=== PATIENT | female | born 1955 | race Caucasian/White ===

== ENCOUNTER 2018-11-16 12:56 | Outpatient (CLI) | payer BC ==
--- NOTE | 2018-11-30 12:33 | Mammography Report ---
Reason: SCREENING MAMMO Procedure Date: 11/16/2018 Accession Number: [id number] / [id number] Procedure: [facility] - Screening Mammo w/Deven CPT Code: FULL RESULT: EXAM: Screening Mammo w/Deven DATE: 11/16/2018 1:56 PM CLINICAL HISTORY: Nulliparous patient for routine screening TECHNIQUE: (B) - Bilateral CC and MLO views were obtained. COMPARISON: None PARENCHYMAL PATTERN: (D) - The breasts demonstrate heterogeneously dense fibroglandular parenchyma bilaterally. FINDINGS: There are no suspicious areas of skin thickening, calcifications, or areas of distortion. Multiple bilateral nodules are present, the dominant at 11:00 right breast 4 cm from the nipple and the dominant left breast at 12:00 position 5 cm from the nipple associated with layering calcifications. IMPRESSION: Needs ADDITIONAL EVALUATION BILATERALLY BY ULTRASOUND. RECOMMENDATION: (Bilateral breast ultrasound. If prior images can be obtained for comparison additional imaging may be unnecessary. BI-RADS CATEGORY: (0) - Incomplete Examination - need additional evaluation. STANDARD QUALIFYING STATEMENTS: 1. This examination was not reviewed with the aid of Computer-Aided Detection (CAD). 2. A negative or benign imaging report should not preclude biopsy if clinically suspicious findings are present. 3. Dense breasts may obscure an underlying neoplasm. 4. This examination was reviewed with the aid of 3D breast imaging (tomosynthesis).
== END 2018-11-16 12:57 | disposition home or self-care (01) ==
LOC: DI 12:56
DX: Z12.31 Encounter for screening mammogram for malignant neoplasm of breast (principal); R92.8 Other abnormal and inconclusive findings on diagnostic imaging of breast
CPT/HCPCS: 77063; 77067

== ENCOUNTER 2018-11-24 15:44 | Outpatient (CLI) | payer BC ==
--- NOTE | 2018-11-25 11:22 | Ultrasound Report ---
Reason: POSTMENOPAUSAL BLEEDING Procedure Date: 11/24/2018 Accession Number: [id number] / [id number] Procedure: US - Pelvic w/Transvaginal CPT Code: FULL RESULT: EXAM: PELVIC ULTRASOUND EXAM DATE: 11/24/2018 05:37 PM. CLINICAL HISTORY: Postmenopausal bleeding. COMPARISON: None. TECHNIQUE: Realtime transabdominal pelvic scan performed to identify the uterus and adnexa and as an overview of other pelvic structures, followed by transvaginal scan to provide greater detail of the uterus and adnexa, with static image documentation. FINDINGS: Uterus: Overall imaging of the uterus is suboptimal due to limited transabdominal window. Transvaginal imaging is suggestive of a bicornuate uterus, see image 27 of series 2. The total length visualized in this projection is 6.6 cm for a height of 2.1 cm and a transverse dimension of 3.6 cm, overall volume would be 26 cc. Both portions appear to arise from a single cervix. Masses: A myometrial mass measuring 0.9 x 0.9 x 1.0 cm is most consistent with a fibroid. Endometrium: Endometrium in the more anterior component is highly echogenic and measures approximately 4 mm. The endometrium in the posterior component of the uterus appears heterogeneous, and measures up to 6 mm in thickness and is characterized by central isoechoic signature with heterogeneous content within a hypoechoic endometrial cavity, abnormal appearance. Cervix: Unremarkable. Right Ovary: 2.9 x 1.7 x 1.9 cm, volume 4.8 cc. Normal echotexture and blood flow. Left Ovary: 1.2 x 1.0 x 1.0 cm, volume 0.6 cc. Limited visualization with no definite abnormality seen. Free Fluid: None. Other: None. IMPRESSION: Regionally abnormal endometrium in the posterior uterus as described. Limited delineation of uterine anatomy, suggestive of a bicornuate uterus. PHUONG The call report notification system was initiated by Dr. Jan Juan at 11:11 AM on 11/25/2018. ADDENDUM: 11/25/18 11:31 The above call report findings were discussed with Kendal Don by Dr. Jan Juan at 11:31 AM on 11/25/2018.
== END 2018-11-24 15:45 | disposition home or self-care (01) ==
LOC: DI 15:44
PROVIDERS: ATTEND Obstetrics & Gynecology
DX: R93.89 Abnormal findings on diagnostic imaging of other specified body structures (principal); N95.0 Postmenopausal bleeding
CPT/HCPCS: 76830; 76856

== ENCOUNTER 2018-12-14 17:30 | Outpatient (CLI) | payer BC ==
--- NOTE | 2018-12-15 08:24 | XRAY Report ---
Reason: PAIN IN LEFT ANKLE AND JOINTS OF LEFT FOOT Procedure Date: 12/14/2018 Accession Number: [id number] / [id number] Procedure: XR - Foot 3 View LT CPT Code: FULL RESULT: EXAM: LEFT FOOT RADIOGRAPHY EXAM DATE: 12/14/2018 06:03 PM. CLINICAL HISTORY: PAIN IN LEFT ANKLE AND JOINTS OF LEFT FOOT. COMPARISON: None. TECHNIQUE: 3 views. FINDINGS: Bones: Previous bunionectomy with proximal first metatarsal fixation. Solitary screw through the proximal phalanx great toe. Solitary screw across the second PIP joint with complete osseous bridging. No evidence of hardware failure. Satisfactory alignment. Joints: See above Soft Tissues: Normal. No soft tissue swelling. IMPRESSION: Satisfactory postoperative appearance of the left foot. No acute finding. RADIA
== END 2018-12-14 17:31 | disposition home or self-care (01) ==
LOC: DI 17:30
PROVIDERS: ATTEND Family Medicine
DX: M25.572 Pain in left ankle and joints of left foot (principal)

== ENCOUNTER 2018-12-28 13:02 | Outpatient (CLI) | payer BC ==
--- NOTE | 2018-12-28 16:04 | Ultrasound Report ---
Reason: HYPOTHYROIDISM, UNSPECIFIED,DISORDER OF BONE, UNSP Procedure Date: 12/28/2018 Accession Number: [id number] / [id number] Procedure: US - Head or Neck Soft Tissue CPT Code: FULL RESULT: EXAM: THYROID ULTRASOUND EXAM DATE: 12/28/2018 01:45 PM. CLINICAL HISTORY: Hypothyroidism. History of nodules with benign biopsy. COMPARISON: None. TECHNIQUE: Real time sonographic imaging of the thyroid was performed by the inspection engineer. Multiple corporate sales representative static images were saved for review. FINDINGS: THYROID GLAND: Right Lobe: 5.6 x 1.7 x 1.6 cm, volume 7.2 cc. Normal background echotexture. Right Lobe Nodules: 0.9 x 0.5 x 0.9 cm solid hypoechoic vascular nodule in the mid to upper right thyroid. Hypoechoic heterogeneous potentially partially cystic 0.5 cm nodule in the mid right thyroid. Inferior right thyroid 0.2 cm cyst. Left Lobe: 3.9 x 1.3 x 1.3 cm, volume 2.9 cc. Normal background echotexture. Left Lobe Nodules: 0.3 cm hypoechoic heterogeneous potentially partially cystic nodule. Isthmus: 0.1 cm AP. Isthmic Nodules: None. LYMPH NODES: No adenopathy demonstrated in the central or lateral compartment. OTHER: None. IMPRESSION: Correlate location of the dominant 0.9 cm right thyroid nodule to reports of previous tissue sampling to confirm that this has been proven benign by FNA, otherwise FNA of the right dominant thyroid nodule. Management recommendations are based on 2015 [place] [employer] Management Guidelines for Adult Patients with Thyroid Nodules and Differentiated Thyroid Cancer. RADIA
--- NOTE | 2018-12-29 09:08 | DEXA Report ---
Reason: HYPOTHYROIDISM, UNSPECIFIED,DISORDER OF BONE, UNSP Procedure Date: 12/28/2018 Accession Number: [id number] / [id number] Procedure: DEX - Dexa Spine and/or Hip CPT Code: FULL RESULT: EXAM: Dexa Spine and/or Hip DATE: 12/28/2018 2:06 PM CLINICAL HISTORY: HYPOTHYROIDISM, UNSPECIFIED,DISORDER OF BONE, UNSP TECHNIQUE: Dual energy x-ray absorptiometry (DXA) was performed on a [employer]. Regions measured are the AP Spine, femoral neck, and if needed forearm. COMPARISON: None. In accordance with the International Society for Clinical Densitometry (ISCD) guidelines, data from previous exams may be reanalyzed using current recommendations and techniques. This is done to allow a more accurate basis for comparison with the current study. FINDINGS: The data for the lumbar spine is as follows: BMD (g/cm/cm) T-SCORE Z-SCORE REGION L1 0.915 -1.8 -0.5 L2 1.031 -1.4 -0.1 L3 1.079 -1.0 0.3 L4 1.036 -1.4 0.0 TOTAL 1.020 -1.3 0.0 NOTE: All evaluable vertebrae are used for classification The data for the hip is as follows: BMD (g/cm/cm) T-SCORE Z-SCORE REGION Neck 0.773 -1.9 -0.6 TOTAL 0.752 -2.0 -1.0 NOTE: The femoral neck or total proximal femur, whichever is lowest, is used for classification. IMPRESSION: THE WHO CLASSIFICATION BASED ON THE INTERNATIONAL REFERENCE STANDARD IS OSTEOPENIA. THE FRACTURE RISK IS INCREASED. RECOMMENDATION: Patients with diagnosis of osteoporosis or osteopenia should have regular bone mineral density assessment. For those eligible for Medicare, routine testing is allowed once every 2 years. Testing frequency can be increased for patients who have rapidly progressing disease or for those who are receiving medical therapy to restore bone mass. COMMENT: World Health Organization (WHO) definitions for osteoporosis and osteopenia: NORMAL BMD: T-score at -1.0 or higher, fracture risk is low OSTEOPENIA BMD: T-score between -1.0 and -2.5, fracture risk is increased. OSTEOPOROSIS BMD: T-score at -2.5 or lower, fracture risk is high. National Osteoporosis Foundation recommends: 1. Obtain adequate dietary calcium (at least 1200 mg per day) and vitamin D (400-800 international units per day). 2. Participate, as appropriate, in regular weightbearing and muscle-strengthening exercise. 3. Avoid tobacco use and reduce alcohol and caffeine intake. 4. For more detailed information see the website at www.NOF.org.
== END 2018-12-28 13:03 | disposition home or self-care (01) ==
LOC: DI 13:02
PROVIDERS: ATTEND Family Medicine
DX: M85.89 Other specified disorders of bone density and structure, multiple sites (principal); E04.1 Nontoxic single thyroid nodule; E03.9 Hypothyroidism, unspecified
CPT/HCPCS: 76536; 77080